=== PATIENT | male | born 1975 | race Two or more races ===

== ENCOUNTER 2019-11-18 20:59 | Emergency (ER) | payer OTHER ==
[2019-11-18 21:08] VITALS: BP 157/73
[2019-11-18] MEDS ORDERED: ACETAMINOPHEN 325 MG TABLET PO ONE (21:12)
[2019-11-18] MEDS ORDERED: NORMAL SALINE 1000 ML 1,000 ML IV ONE (21:18)
--- NOTE | 2019-11-18 21:18 | ER Document Report ---
ED Medical Screen (RME) - General Chief Complaint: Flu Symptoms Stated Complaint: FEVER,BODY ACHES,CHILLS Time Seen by Provider: 11/18/19 21:09 Mode of Arrival: Ambulatory Information source: Patient Notes: 44-year-old male presented to ED for cough cold congestion body aches fevers chills since Wednesday. He has a temperature of 103.1 in the emergency room with a pulse of 103. Blood pressure is 157/73 and respirations are 18. We have obtained a flu and strep test will get blood work urine and chest x-ray. I have ordered 975 mg of Tylenol at this time. He did have ibuprofen last 4 hours ago 400 mg. Patient is alert oriented respirations regular nonlabored speaking in full sentences. He does understand [place]. I have greeted and performed a rapid initial assessment of this patient. A comprehensive ED assessment and evaluation of the patient, analysis of test results and completion of medical decision making process will be conducted by an additional ED providers. Physical Exam - Vital signs Vitals: Temp Pulse Resp BP Pulse Ox 103.1 F H 103 H 18 157/73 H 96 11/18/19 21:06 11/18/19 21:06 11/18/19 21:06 11/18/19 21:06 11/18/19 21:06 Course - Vital Signs Vital signs: Temp Pulse Resp BP Pulse Ox 103.1 F H 103 H 18 157/73 H 96 11/18/19 21:06 11/18/19 21:06 11/18/19 21:06 11/18/19 21:06 11/18/19 21:06
[2019-11-18 21:44] LABS: ABSOLUTE BASOPHILS # (AUTO) 0.1 10^3/uL (0.0-0.2); ABSOLUTE EOSINOPHILS # (AUTO) 0.5 10^3/uL (0.0-0.6); ABSOLUTE LYMPHOCYTES (AUTO) 2.5 10^3/uL (0.5-4.7); ABSOLUTE NEUT (AUTO) 8.2 10^3/uL (1.7-8.2); BASOPHILS % (AUTO) 0.8 % (0-2); EOSINOPHILS % (AUTO) 3.7 % (0-6); HEMOGLOBIN 14.3 g/dL (13.5-17.0); LYMPHOCYTES % (AUTO) 18.6 % (13-45); MEAN CORPUSCULAR HEMOGLOBIN 30.9 pg (27.0-33.4); MEAN CORPUSCULAR HGB CONC 34.7 g/dL (32.0-36.0); MEAN CORPUSCULAR VOLUME 89 fl (80-97); MONOCYTES % (AUTO) 14.8 % (3-13); PLATELET COUNT 219 10^3/uL (150-450); RED BLOOD COUNT 4.62 10^6/uL (4.35-5.55); RED CELL DISTRIBUTION WIDTH 13.5 % (11.5-14.0); SEGMENTED NEUTROPHILS % (AUTO) 62.1 % (42-78); TOTAL CELLS COUNTED % (AUTO) 100 %; WHITE BLOOD COUNT 13.3 10^3/uL (4.0-10.5)
--- NOTE | 2019-11-18 21:58 | RADIOLOGY REPORT (SQ) ---
EXAM DESCRIPTION: XR CHEST 2 VIEWS COMPLETED DATE/TME: 11/18/2019 21:16 CLINICAL HISTORY: 44 years, Male, Cough cold congestion fever COMPARISON: None. NUMBER OF VIEWS: Two TECHNIQUE: Frontal and lateral radiographs of the chest were acquired. LIMITATIONS: None. FINDINGS: Cardiac and mediastinal contours are normal. Patchy retrocardiac left basilar opacity is noted. Lungs are otherwise clear. No pleural effusion or pneumothorax is evident. IMPRESSION: Patchy retrocardiac left basilar opacity. Consider atelectasis or pneumonia to include aspiration. Recommend follow-up to clearing. copyright 2010 [employer] [place]- All Rights Reserved
[2019-11-18 22:00] LABS: APPEARANCE,URINE CLEAR; BILIRUBIN,URINE NEGATIVE (NEGATIVE); COLOR,URINE YELLOW; GLUCOSE, URINE NEGATIVE (NEGATIVE); KETONES,URINE NEGATIVE (NEGATIVE); PROTEIN,URINE NEGATIVE (NEGATIVE); URINE SPECIFIC GRAVITY 1.027
[2019-11-18 22:03] LABS: A TYPE INFLUENZA AG NEGATIVE (NEGATIVE); ALBUMIN 4.3 g/dL (3.5-5.0); ALKALINE PHOSPHATASE 93 U/L (38-126); ANION GAP 9 (5-19); ASPARTATE AMINO TRANSFERASE 47 U/L (17-59); B INFLUENZA AG NEGATIVE (NEGATIVE); BILIRUBIN,TOTAL 0.4 mg/dL (0.2-1.3); BLOOD UREA NITROGEN 15 mg/dL (7-20); CALCIUM 8.5 mg/dL (8.4-10.2); CARBON DIOXIDE 28 mmol/L (22-30); CHLORIDE 101 mmol/L (98-107); GLUCOSE 115 mg/dL (75-110); POTASSIUM 4.3 mmol/L (3.6-5.0); TOTAL PROTEIN 7.8 g/dL (6.3-8.2)
[2019-11-18] MEDS ORDERED: AZITHROMYCIN 250 MG TABLET PO ONE (22:10)
[2019-11-18] MEDS ORDERED: CEFTRIAXONE 1 GM/D5W RTU 1 GM/50 ML RTUPB IV ONE (22:10)
[2019-11-18] MEDS ORDERED: IPRATROPIUM/ALBUTEROL 0.5-2.5 MG/3 ML AMPUL NEB ONE (22:34)
--- NOTE | 2019-11-18 22:34 | ER Document Report ---
ED Flu Like - General Chief Complaint: Flu Symptoms Stated Complaint: FEVER,BODY ACHES,CHILLS Time Seen by Provider: 11/18/19 21:09 Primary Care Provider: YONAS SALAMANCA MD [ACTIVE STAFF] - Follow up as needed Mode of Arrival: Ambulatory Notes: CHIEF COMPLAINT: Cough and fever for 1 week HPI: 44-year-old male presenting to the emergency department complaining of 1 week of worsening cough with fever. No chest pain no shortness of breath. Did not take medication for fever today. ROS: See HPI - all other systems were reviewed and are otherwise negative Constitutional: Positive fever Eyes: no drainage, no blurred vision ENT: Positive runny nose, no sore throat Cardiovascular: no chest pain Resp: no SOB, positive cough GI: no vomiting, no diarrhea, no abdominal pain : no dysuria Integumentary: no rash Allergy: no hives Musculoskeletal: no extremity pain or swelling Neurological: no numbness/tingling, no weakness MEDICATIONS: I agree with the patient medications as charted by the RN. ALLERGIES: I agree with the allergies as charted by the RN. PAST MEDICAL HISTORY/PAST SURGICAL HISTORY: Reviewed and agree as charted by RN. SOCIAL HISTORY: Reviewed and agree as charted by RN. FAMILY HISTORY: No significant familial comorbid conditions directly related to patient complaint EXAM: Reviewed vital signs as charted by RN. CONSTITUTIONAL: Alert and oriented and responds appropriately to questions. Well-appearing; well-nourished, mild distress secondary to cough HEAD: Normocephalic; atraumatic EYES: PERRL; Conjunctivae clear, sclerae non-icteric ENT: normal nose; no rhinorrhea; moist mucous membranes; pharynx without lesions noted, no uvula edema or deviation, no tonsillar hypertrophy, phonation normal NECK: Supple without meningismus; non-tender; no cervical lymphadenopathy, no masses CARD: RRR; no murmurs, no clicks, no rubs, no gallops; symmetric distal pulses RESP: Normal chest excursion without splinting or tachypnea; breath sounds clear and equal bilaterally; no wheezes, no rhonchi, no rales, pulse oximetry 97% on room air not hypoxic ABD/GI: Normal bowel sounds; non-distended; soft, non-tender, no rebound, no guarding; no palpable organomegaly or masses. BACK: The back appears normal and is non-tender to palpation, there is no CVA tenderness EXT: Normal ROM in all joints; non-tender to palpation; no cyanosis, no effusions, no edema SKIN: Normal color for age and race; warm; dry; good turgor; no acute lesions noted NEURO: Moves all extremities equally; Motor and sensory function intact PSYCH: The patient's mood and manner are appropriate. Grooming and personal hygiene are appropriate. MDM: 44-year-old male with 1 week of worsening cough and fever. Noted to have a mild left lower lobe pneumonia. Initial lab work and imaging studies by triage process. Will give patient Rocephin and Zithromax in the emergency department. TRAVEL OUTSIDE OF THE [place] IN LAST 30 DAYS: No - Related Data Allergies/Adverse Reactions: No Known Allergies Allergy (Verified 11/18/19 21:20) Past Medical History - General Information source: Patient - Social History Smoking Status: Never Smoker Family History: Reviewed & Not Pertinent Patient has suicidal ideation: No Patient has homicidal ideation: No Physical Exam - Vital signs Vitals: Temp Pulse Resp BP Pulse Ox 103.1 F H 103 H 18 157/73 H 96 11/18/19 21:06 11/18/19 21:06 11/18/19 21:06 11/18/19 21:06 11/18/19 21:06 Course - Vital Signs Vital signs: Temp Pulse Resp BP Pulse Ox 100.9 F H 103 H 18 157/73 H 96 11/18/19 22:59 11/18/19 21:06 11/18/19 21:06 11/18/19 21:06 11/18/19 21:06 - Laboratory Result Diagrams: 11/18/19 21:28 11/18/19 21:28 Laboratory results interpreted by me: 11/18/19 11/18/19 11/18/19 21:28 21:28 21:28 WBC 13.3 H [place] % (Auto) 14.8 H Absolute Monos (auto) 2.0 H Glucose 115 H ALT 69 H Urine Blood MODERATE H Urine Urobilinogen 2.0 H Discharge - Discharge Clinical Impression: Fever in adult Pneumonia Qualifiers: Pneumonia type: due to unspecified organism Laterality: left Lung location: lower lobe of lung Qualified Code(s): J18.9 - Pneumonia, unspecified organism Condition: Stable Disposition: HOME, SELF-CARE Additional Instructions: 1. take the medications as prescribed 2. if you were prescribed an Albuterol inhaler, use it as instructed, 2 puffs every 4 hours as needed for cough/wheezing 3. call your primary care provider as soon as possible to schedule recheck appt. in the office. 4. return to the ED for any worsening condition, shortness of breath or continued fever that does not resolve with Motrin/Tylenol Prescriptions: Benzonatate [Tessalon Perles 100 mg Capsule] 100 mg PO Q8HP PRN #40 capsule PRN Reason: Albuterol Sulfate [Proair HFA Inhalation Aerosol 8.5 gm MDI] 2 puff IH Q4H PRN #1 mdi PRN Reason: Azithromycin [Zithromax 250 mg Tablet] 250 mg PO ASDIR PRN #6 tablet PRN Reason: Referrals: YONAS SALAMANCA MD [ACTIVE STAFF] - Follow up as needed
== END 2019-11-18 23:50 | disposition home or self-care (01) ==
LOC: ER 20:59
DX: J18.9 Pneumonia, unspecified organism (principal); R50.9 Fever, unspecified; R05 Cough; R09.89 Other specified symptoms and signs involving the circulatory and respiratory systems
CPT/HCPCS: 94640; 99283; 96361; 96365; 36415; 87040; 87070; 87880; 85025; 80053; 81001; 87804; 71046; J7030; J0696; J7620